=== PATIENT | female | born 1975 | race Caucasian/White ===

== ENCOUNTER 2021-05-30 21:43 | Inpatient (IN) | payer MEDICAID, OTHER ==
[~2021-05-30] VITALS: Ht 152.4 cm; Wt 70.3 kg
[2021-05-30] MEDS ORDERED: IPRATROPIUM BROMIDE (0.02%) 0.5MG/2.5ML NEB HHN STA ×2 (21:56→21:59)
[2021-05-30] MEDS ORDERED: METHYLPREDNISOLONE SOD SUCC 125 MG/2 ML VIAL IV STA (21:59)
[2021-05-30] MEDS ORDERED: MAGNESIUM 2 G PREMIX 50 ML IV ONE (22:00)
[2021-05-30 22:24] LABS: BASOPHILS % 0.8 % (0.0-2.0); EOSINOPHILS % 0.7 % (0.0-5.0); HEMATOCRIT. 36.4 % (36.0-48.0); HEMOGLOBIN. 12.1 g/dL (12.0-16.0); LYMPHOCYTES % 36.6 % (20.0-50.0); MEAN CORPUSCULAR HEMOGLOBIN 26.4 pg (28.0-32.0); MEAN CORPUSCULAR VOLUME 79.2 fL (81.0-99.0); MEAN PLATELET VOLUME 7.2 fl (7.4-10.4); MONOCYTES % 5.2 % (2.0-8.0); NEUTROPHILS % 56.7 % (40.0-76.0); PLATELET 355 x1000/uL (130-400); RED BLOOD CELL COUNT 4.59 mill/uL (4.2-5.4); RED CELL DISTRIBUTION WIDTH 15.3 % (11.6-14.6)
[2021-05-30 22:30] LABS: CHLORIDE 105 mEq/L (98-107)
[2021-05-30] MEDS: ALBUTEROL (0.083%) 2.5MG/3ML NEB HHN SCH ×2 (23:27→23:28)
[2021-05-31] VITALS (7 sets, daily range): BP systolic 125–139; BP diastolic 58–83
[2021-05-31] MEDS: ALBUTEROL (0.083%) 2.5MG/3ML NEB HHN SCH ×6 (00:46→23:47)
[2021-05-31] MEDS ORDERED: IPRATROPIUM BROMIDE (0.02%) 0.5MG/2.5ML NEB HHN STA (01:19)
[2021-05-31] MEDS ORDERED: ALBUTEROL (0.083%) 2.5MG/3ML NEB HHN SCH ×2 (01:30→12:00)
[2021-05-31] MEDS ORDERED: ALBUTEROL (0.083%) 2.5MG/3ML NEB HHN PRN (07:45)
[2021-05-31] MEDS ORDERED: AZITHROMYCIN 500MG/250ML 250 ML IV SCH (08:00)
[2021-05-31 08:39] LABS: BASOPHILS % 0.2 % (0.0-2.0); HEMATOCRIT. 35.5 % (36.0-48.0); HEMOGLOBIN. 11.9 g/dL (12.0-16.0); LYMPHOCYTES % 10.7 % (20.0-50.0); MEAN CORPUSCULAR HEMOGLOBIN 26.7 pg (28.0-32.0); MEAN CORPUSCULAR VOLUME 79.5 fL (81.0-99.0); MEAN PLATELET VOLUME 7.5 fl (7.4-10.4); NEUTROPHILS % 88.1 % (40.0-76.0); PLATELET 332 x1000/uL (130-400); RED BLOOD CELL COUNT 4.47 mill/uL (4.2-5.4); RED CELL DISTRIBUTION WIDTH 15.4 % (11.6-14.6)
[2021-05-31 08:45] LABS: CHLORIDE 107 mEq/L (98-107)
[2021-05-31 09:48] LABS: BG BASE EXCESS -1.9 mmol/L (-2.0-2.0); BG CARBOXYHEMOGLOBIN 0.3 % (0.5-1.5); BG DEOXYHEMOGLOBIN 2.3 % (0.0-5.0); BG FRACTION INSPIRED OXYGEN 30; BG HCO3 ACT 22.5 mmol/L (22.0-26.0); BG METHEMOGLOBIN 0.1 % (0.0-1.5); BG OXYGEN SATURATION 97.7 % (92.0-98.5); BG OXYHEMOGLOBIN 97.3 % (94.0-97.0); BG PCO2 37.4 mmHg (35.0-45.0); BG PH 7.398 (7.350-7.450); BG PO2 102.1 mmHg (75.0-100.0); BG SAMPLE SITE RIGHT RADIAL; BG TOTAL HEMOGLOBIN 12.3 g/dL (12.0-18.0); BG TOTAL RESPIRATORY RATE 17 b/min; BG VENT MODE MASK - BIPAP
[2021-05-31] MEDS ORDERED: P20 PO (10:31)
[2021-05-31] MEDS ORDERED: BECL10.6 INH (10:31)
[2021-05-31] MEDS ORDERED: AMLO10TA4 PO (10:31)
[2021-05-31] MEDS: METHYLPREDNISOLONE SOD SUCC 125 MG/2 ML VIAL IV SCH ×3 (11:06→21:28)
[2021-05-31] MEDS: FAMOTIDINE 20MG/2ML VIAL IV SCH ×2 (11:07→21:28)
[2021-05-31] MEDS: LORATADINE 10MG TABLET PO SCH (11:07)
[2021-05-31] MEDS: ENOXAPARIN 40MG/0.4ML SYR SUBCUT SCH (11:12)
[2021-05-31] MEDS ORDERED: PNEUMOCOCCAL 23-VAL P-SAC VAC 0.5 ML IM ONE (11:45)
[2021-05-31] MEDS: AZITHROMYCIN 500MG/250ML 250 ML IV SCH (12:20)
[2021-05-31] MEDS ORDERED: MONTELUKAST SODIUM 10MG TABLET PO SCH (17:00)
[2021-06-01] VITALS (8 sets, daily range): BP systolic 115–136; BP diastolic 67–97
[2021-06-01] MEDS: ALBUTEROL (0.083%) 2.5MG/3ML NEB HHN SCH ×4 (04:01→16:00)
[2021-06-01] MEDS: METHYLPREDNISOLONE SOD SUCC 125 MG/2 ML VIAL IV SCH (05:19)
[2021-06-01 06:20] LABS: CHLORIDE 92 mEq/L (98-107)
[2021-06-01 06:24] LABS: HEMATOCRIT. 36.7 % (36.0-48.0); HEMOGLOBIN. 11.7 g/dL (12.0-16.0); MEAN CORPUSCULAR HEMOGLOBIN 23.5 pg (28.0-32.0); MEAN CORPUSCULAR VOLUME 73.5 fL (81.0-99.0); PLATELET 305 x1000/uL (130-400); RED BLOOD CELL COUNT 4.99 mill/uL (4.2-5.4); RED CELL DISTRIBUTION WIDTH 24.3 % (11.6-14.6)
[2021-06-01] MEDS: FAMOTIDINE 20MG/2ML VIAL IV SCH (08:56)
[2021-06-01] MEDS: ENOXAPARIN 40MG/0.4ML SYR SUBCUT SCH (08:56)
[2021-06-01] MEDS: LORATADINE 10MG TABLET PO SCH (08:56)
[2021-06-01] MEDS: AZITHROMYCIN 500MG/250ML 250 ML IV SCH (12:49)
[2021-06-01 14:08] LABS: PLATELET ESTIMATE NORMAL
[2021-06-01] MEDS ORDERED: METHYLPREDNISOLONE SOD SUCC 40 MG/ML VIAL IV SCH (18:00)
== END 2021-06-01 18:24 | disposition left against medical advice (07) | DRG 133 ==
LOC: ER 21:43 → ENRESERV 05-31 07:44 → 5EST 05-31 10:30
PROVIDERS: ADMIT Family Medicine; ATTEND Family Medicine
PROC: 5A09357 Assistance with Respiratory Ventilation, Less than 24 Consecutive Hours, Continuous Positive Airway Pressure (ICD-10-PCS; principal; 2021-05-31)
DX: J96.01 Acute respiratory failure with hypoxia (principal); J45.901 Unspecified asthma with (acute) exacerbation; D50.9 Iron deficiency anemia, unspecified; R73.9 Hyperglycemia, unspecified; Z20.822 Contact with and (suspected) exposure to COVID-19; E66.9 Obesity, unspecified; E87.6 Hypokalemia; I10 Essential (primary) hypertension; Z68.30 Body mass index [BMI] 30.0-30.9, adult; Z91.040 Latex allergy status; Z79.899 Other long term (current) drug therapy
CPT/HCPCS: 36415; 36600; 71045; 80048; 80053; 82375; 82805; 85025; 87426; 90732; 93005; 94640; 94660; 99291; J0456; J1650; J2930; J3475; J3490

== ENCOUNTER 2021-06-09 18:43 | Emergency (ER) | payer OTHER ==
[~2021-06-09] VITALS: Ht 152.4 cm; Wt 66.0 kg
[~2021-06-09 18:43] MED LIST: AMLO10TA4 PO; BECL10.6 INH; P20 PO
[2021-06-09] MEDS ORDERED: IPRATROPIUM BROMIDE (0.02%) 0.5MG/2.5ML NEB HHN STA (20:07)
[2021-06-09] MEDS ORDERED: ALBUTEROL (0.083%) 2.5MG/3ML NEB HHN STA (20:07)
[2021-06-09] MEDS ORDERED: PREDNISONE 20MG TABLET PO STA (20:07)
[2021-06-09] MEDS ORDERED: P20 MT (22:52)
[2021-06-09 22:53] VITALS: BP 132/87
== END 2021-06-09 23:10 | disposition home or self-care (01) ==
LOC: ER 18:43
DX: J45.901 Unspecified asthma with (acute) exacerbation (principal); I10 Essential (primary) hypertension; Z91.040 Latex allergy status
CPT/HCPCS: 94640; 99283; J7512; Z7610; 94644

== ENCOUNTER 2022-02-28 15:22 | Emergency (ER) | payer OTHER ==
[~2022-02-28] VITALS: Ht 152.4 cm; Wt 66.0 kg
[~2022-02-28 15:22] MED LIST changes: +P20 MT
[2022-02-28 15:40] VITALS: BP 140/81
[2022-02-28] MEDS ORDERED: IPRATROPIUM/ALBUTEROL 0.5-3(2.5)MG/3ML NEB HHN STA (22:47)
[2022-02-28] MEDS ORDERED: PREDNISONE 20MG TABLET PO ONE (23:00)
[2022-03-01] MEDS ORDERED: ALBU6.7H3 INH (00:15)
[2022-03-01] MEDS ORDERED: P50 MT (00:15)
[2022-03-01] MEDS ORDERED: ALBU2.5V13 NEB (00:15)
== END 2022-03-01 00:40 | disposition home or self-care (01) ==
LOC: ER 15:22
DX: J45.901 Unspecified asthma with (acute) exacerbation (principal); I10 Essential (primary) hypertension; J45.909 Unspecified asthma, uncomplicated; Z98.890 Other specified postprocedural states; Z91.040 Latex allergy status
CPT/HCPCS: 71045; 93005; 94640; 99283; J7512; Z7610